=== PATIENT | male | born 1960 | race Caucasian/White ===

== ENCOUNTER 2018-07-13 12:33 | Emergency (ER) | payer OTHER ==
[2018-07-13 13:28] LABS: PLATELET COUNT 79 10^3/uL (150-400)
--- NOTE | 2018-07-13 14:00 | EDPHY ---
H & P Stated Complaint: Seizure Time Seen by Provider: 07/13/18 13:11 HPI/ROS: CHIEF COMPLAINT: New onset seizure HISTORY OF PRESENT ILLNESS: 57-year-old male presents with a new onset seizure. He takes benzodiazepines daily because of an underlying anxiety disorder. He ran out of Ativan 1 week ago. He had a witnessed generalized seizure in front of a store just prior to arrival. Postictal confusion, now resolved. He denies injury during the seizure. No prior history of seizure disorder. REVIEW OF SYSTEMS: complete 10 point ROS reviewed and is negative except for the noted elements in the HPI - Personal History Current Tetanus/Diphtheria Vaccine: Yes Current Tetanus Diphtheria and Acellular Pertussis (TDAP): Yes - Medical/Surgical History Hx Asthma: No Hx Chronic Respiratory Disease: No Hx Diabetes: No Hx Cardiac Disease: No Hx Renal Disease: No Hx Cirrhosis: No Hx Alcoholism: No Hx HIV/AIDS: No Hx Splenectomy or Spleen Trauma: No Other PMH: hypothyroid. depression. Tonsillectomy - Social History Smoking Status: Never smoked Alcohol Use: Other (Moderate alcohol use: 2-3 beers 4 times a week) Drug Use: Marijuana (occasionally) - Physical Exam Exam: General Appearance: Alert, pleasant Eyes: Pupils equal and round, no conjunctival pallor or injection ENT, Mouth: Mucous membranes moist Neck: Normal inspection Respiratory: Lungs are clear to auscultation Cardiovascular: Regular rate and rhythm Gastrointestinal: Abdomen is soft and nontender Neurological: Alert, oriented x3, cranial nerves II through XII intact, motor 5 /5, sensory intact to light touch Skin: Warm and dry, no rash Extremities: Normal inspection, no tenderness Psychiatric: Anxious, slightly tremulous Constitutional: Initial Vital Signs Temperature (C) 36.9 C 07/13/18 12:46 Heart Rate 94 07/13/18 12:46 Respiratory Rate 07/13/18 12:46 Blood Pressure 139/88 H 07/13/18 12:46 O2 Sat (%) 93 07/13/18 12:46 O2 Delivery Mode Room Air Allergies/Adverse Reactions: No Known Allergies Allergy (Verified 05/31/18 14:23) Home Medications: Medication Instructions Recorded Citalopram 03/30/14 Levothyroxine 03/30/14 HYDROcodone/HOMATROPINE HYCODA 1 tsp PO Q4-6PRN PRN #120 ml 05/31/18 [Hycodan Syrup (*)] LORazepam [Ativan] 0.5 mg PO Q12 PRN #8 tablet 07/13/18 Medical Decision Making - Diagnostics EKG Interpretation: EKG interpreted by me reveals NSR, rate 85, no ST/T changes. Interpretation: normal EKG Imaging Results: CT head: NAD Imaging: Discussed imaging studies w/ calliope player Radiologist ED Course/Re-evaluation: This patient presents after new onset seizure, most likely related to benzodiazepine withdrawal. Neuro exam is normal and there is no evidence for injury related to seizure. He is very tremulous, which he attributes to anxiety. Denies heavy alcohol use or possible alcohol withdrawal. Ativan 0.5 mg IV given, which is his usual dose. He usually takes Ativan 0.5-1.5mg daily. Prescription for Ativan written. Will stay with a friends tonight and follow up with a neurologist. Understands that he cannot drive until he is cleared by the neurologist. Differential Diagnosis: Differential diagnosis includes though it is not limited to status epilepticus, hypoglycemia, intracranial hemorrhage, CVA, benzodiazepine withdrawal, alcohol withdrawal, epilepsy. - Data Points Laboratory Results: Laboratory Results 07/13/18 12:55 07/13/18 12:55 Medications Given: Discontinued Medications Lorazepam (Ativan Injection) 0.5 mg IVP EDNOW ONE Stop: 07/13/18 14:03 Last Admin: 07/13/18 14:21 Dose: 0.5 mg Departure - Departure Disposition: Home, Routine, Self-Care Clinical Impression: New onset seizure Condition: Good Instructions: New-Onset Seizure in Adults (ED) Additional Instructions: 1. No driving until you are cleared by a neurologist to drive. 2. No dangerous activities such as riding a ski lift, swimming in a pool or other behavior that could put you or someone else at risk in the event of a recurrent seizure. You will need to be cleared by a neurologist to resume these activities. 3. Please return to the ED for recurrent seizure, headache, numbness, weakness, altered mental status or other concerns. 4. Please call the referral neurologist promptly to schedule a follow-up appointment. Referrals: Elie Monahan DO [Primary Care Provider] - As per Instructions Anthony Braswell DO [Medical Doctor] - As per Instructions (Call to make an appointment.) Prescriptions: LORazepam [Ativan] 0.5 mg PO Q12 PRN #8 tablet PRN Reason: Anxiety
[2018-07-13] MEDS ORDERED: LORazepam 2 MG/ML INJ IVP ONE (14:02)
[2018-07-13 14:26] VITALS: BP 135/85
--- NOTE | 2018-07-13 14:47 | CPEKG ---
Test Reason : OPEN Blood Pressure : / mmHG Vent. Rate : 085 BPM Atrial Rate : 085 BPM P-R Int : 136 ms QRS Dur : 079 ms QT Int : 385 ms P-R-T Axes : 081 019 031 degrees QTc Int : 458 ms Sinus rhythm Confirmed by Britta Christine ([id number]) on 07/13/2018 2:46:30 PM Referred By: Confirmed By:Britta Christine
== END 2018-07-13 14:26 | disposition home or self-care (01) ==
LOC: EDUNIT# → EEVIPCON 12:33
DX: R56.9 Unspecified convulsions (principal); F41.8 Other specified anxiety disorders; E03.9 Hypothyroidism, unspecified
CPT/HCPCS: 96374; G0480; J2060